=== PATIENT | male | born 1930 | race Caucasian/White ===

== ENCOUNTER 2016-07-18 02:33 | Inpatient (IN) | payer MEDICARE, OTHER ==
[~2016-07-18] VITALS: Ht 165.1 cm; Wt 56.5 kg
[2016-07-18] VITALS (10 sets, daily range): BP systolic 102–121; BP diastolic 57–82; PULSE 64–93; RESP 18–20; TEMP 97–98.1; O2SAT 95–100
[~2016-07-18 02:33] MED LIST: COLY4000S PO; Z.0.NO CURRENT MEDS
--- NOTE | 2016-07-18 04:18 | RADHPO ---
EXAM DATE/TIME: 07/18/2016 03:56 [place] COMPARISON: No previous studies available for comparison. INDICATIONS : Right knee pain after patient fell this morning MEDICAL HISTORY : None. SURGICAL HISTORY : None. ENCOUNTER: Initial ACUITY: 1 day PAIN SCORE: 10/10 LOCATION: Right entire knee FINDINGS: 4 views of the right knee. There is a horizontal fracture of the proximal tibia metaphysis with 4 mm lateral and posterior displacement of the distal fragment. Proximal fibular shaft fracture is also no emili with 3 mm lateral displacement of the distal fragment. Moderate-sized joint effusion. Chondrocalc inosis of the menisci. CONCLUSION: Proximal tibial metaphysis fracture and adjacent proximal fibular shaft fracture. Moderate-sized join t effusion. Bonifacio Shepard MD on July 18, 2016 at 4:14 Board Certified Radiologist. This report was verified electronically.
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
[2016-07-18] MEDS ORDERED: ONDANSETRON HCL 4 MG/2 ML VIAL IVP PRN ×2 (05:00→10:30)
[2016-07-18] MEDS ORDERED: MORPHINE SULFATE 4 MG/ML INJ IV PUSH PRN ×2 (05:00→10:30)
[2016-07-18] MEDS ORDERED: NALOXONE HCL 0.4 MG/ML AMP IV PRN ×2 (05:00→10:30)
[2016-07-18] MEDS ORDERED: SODIUM CHLORIDE 0.9% FLUSH 5 ML FLUSH FLUSH PRN ×2 (05:00→10:30)
[2016-07-18 05:44] LABS: AUTOMATED NEUTROPHIL # 12.2 TH/MM3 (1.8-7.7); BASOPHIL # 0.2 TH/MM3 (0-0.2); BASOPHIL % 1.2 % (0.0-2.0); EOSINOPHIL % 0.1 % (0.0-4.0); HEMATOCRIT 33.4 % (39.0-51.0); LYMPH % 3.1 % (9.0-44.0); LYMPHOCYTE # 0.4 TH/MM3 (1.0-4.8); MEAN CELL VOLUME 97.3 FL (80.0-100.0); MEAN CORPUSCULAR HEMOGLOBIN 32.8 PG (27.0-34.0); MEAN CORPUSCULAR HGB CONC 33.8 % (32.0-36.0); MONO % 6.7 % (0.0-8.0); NEUT % 88.9 % (16.0-70.0); PLATELET COUNT 103 TH/MM3 (150-450); RED BLOOD COUNT 3.43 MIL/MM3 (4.50-5.90); RED CELL DISTRIBUTION WIDTH 14.5 % (11.6-17.2); WHITE BLOOD COUNT 13.7 TH/MM3 (4.0-11.0)
[2016-07-18 05:52] LABS: POTASSIUM 4.3 MEQ/L (3.5-5.1)
[2016-07-18 05:55] LABS: BICARBONATE 24.7 MEQ/L (21.0-32.0)
[2016-07-18 05:58] LABS: APTT (PATIENT) 22.9 SEC (24.3-30.1); PROTHROMBIN TIME - PATIENT 11.5 SEC (9.8-11.6)
[2016-07-18 05:59] LABS: HEMO FLAGS DIFF FINAL
[2016-07-18] MEDS ORDERED: SODIUM CHLORIDE 0.9% FLUSH 5 ML FLUSH FLUSH SCH (09:00)
--- NOTE | 2016-07-18 10:27 | HHI.HP ---
[facility] Wang Hawkins M.D. Admission Diagnosis Displaced proximal tib/fib fracture Diagnoses: Chief Complaint: Fall Travel History International Travel<30 Days: No Contact w/Intl Traveler <30 Da: No Traveled to Known Affected Are: No History of Present Illness 85 years old male presented to the ED after he fell down on his knees while he was throwing trash, in general he is a poor historian but he stated his knees give out on him, the neighbor across the street came to help him out. Currently patient stated his pain is tolerable, he denied any chest pain short of breath headache lightheaded, pain diarrhea constipation, he denied any history of myocardial infarction or stroke in the past, he stated he had a right hip surgery in the past but he didn't know what it is. He denied any medical problem except for possible hypertension. In ED orthopedic was consulted and initially the plan for the patient was be transferred to the [facility] for orthopedic workup, however Dr. Cheney recommended against surgical intervention, after he reviewed the film patient is nonoperative, nonweightbearing. Review of Systems All 10 systems reviewed and was positive for what is mentioned in history of present illness otherwise negative Past Family Social History Past Medical History Patient denied any history of [place], and artery disease thyroid or any other medical problems except possible hypertension but he doesn't take medication only medication he takes is some laxity Past Surgical History H/O right hip surgery in the past Allergies: Coded Allergies: No Known Allergies (Verified , 07/18/16) Family History Reviewed noncontributory Social History Drinks alcohol occasionally, no tobacco or illicit drug abuse Physical Exam Vital Signs Vital Signs Date Time Temp Pulse Resp B/P Pulse Ox O2 Delivery O2 Flow Rate FiO2 07/18/16 08:00 97.7 68 18 117/71 100 07/18/16 06:43 78 18 100 Room Air 07/18/16 06:43 78 18 121/63 100 Room Air 07/18/16 04:47 97.6 90 18 118/68 100 Room Air 07/18/16 04:47 90 18 100 Room Air 07/18/16 03:48 85 18 113/78 100 Room Air 07/18/16 02:49 93 18 99 Room Air 07/18/16 02:37 97.0 93 18 113/82 99 Physical Exam GENERAL: This is a frail 85 years old elderly well-developed patient, in no apparent distress. SKIN: No rashes, warm and dry HEAD: Atraumatic. Normocephalic. EYES: Pupils equal round and reactive. Extraocular motions intact. No scleral icterus. ENT: Nose without bleeding, or drainage, Airway patent. NECK: Trachea midline. Supple CARDIOVASCULAR: Regular rate and rhythm without murmurs, gallops, or rubs. RESPIRATORY: Fair air entry bilaterally. No wheezes, rales, or rhonchi. GASTROINTESTINAL: Abdomen soft, non-tender, nondistended. Positive bowel sounds MUSCULOSKELETAL: Right lower extremity in cast NEUROLOGICAL: Awake and alert. Moves all extremity. Normal speech.no focal neurological deficit Laboratory Laboratory Tests Test 07/18/16 05:30 White Blood Count 13.7 Red Blood Count 3.43 Hemoglobin 11.3 Hematocrit 33.4 Mean Corpuscular Volume 97.3 Mean Corpuscular Hemoglobin 32.8 Mean Corpuscular Hemoglobin 33.8 Concent Red Cell Distribution Width 14.5 Platelet Count 103 Mean Platelet Volume 8.9 Neutrophils (%) (Auto) 88.9 Lymphocytes (%) (Auto) 3.1 Monocytes (%) (Auto) 6.7 Eosinophils (%) (Auto) 0.1 Basophils (%) (Auto) 1.2 Neutrophils # (Auto) 12.2 Lymphocytes # (Auto) 0.4 Monocytes # (Auto) 0.9 Eosinophils # (Auto) 0.0 Basophils # (Auto) 0.2 CBC Comment DIFF FINAL Differential Comment Prothrombin Time 11.5 Prothromb Time International 1.0 Ratio Activated Partial 22.9 Thromboplast Time Sodium Level 141 Potassium Level 4.3 Chloride Level 108 Carbon Dioxide Level 24.7 Anion Gap 8 Blood Urea Nitrogen 15 Creatinine 0.60 Estimat Glomerular Filtration 128 Rate Random Glucose 110 Calcium Level 7.9 Result Diagram: 07/18/16 0530 07/18/16 0530 Imaging Last Impressions Knee X-Ray 07/18/16 0000 Signed Impressions: Service Date/Time: July 03:56 - CONCLUSION: Proximal tibial metaphysis fracture and adjacent proximal fibular shaft fracture. Moderate-sized joint effusion. Bonifacio Shepard MD Assessment and Plan Assessment and Plan 85 years old male with Proximal tibial metaphysis fracture and adjacent proximal fibular shaft fracture Due to mechanical fall. Admitted to inpatient for pain management Consult orthopedic, no need to transferred to [facility], nonoperative, nonweightbearing Consult PT OT Consult correctional counselor/case manager for placement [place] and morphine for pain contro Monitor blood pressure, will check A1c, and monitor Accu-Chek Heparin for DVT prophylaxis Thrombocytopenia: Unknown origin, will monitor CBC closely while patient on DVT prophylaxis with heparin Discussed Condition With Patient, nurse an PA Physician Certification 2 Midnight Certification Type: Admission for Inpatient Services Order for Inpatient Services The services are ordered in accordance with Medicare regulations or non- Medicare payer requirements, as applicable. In the case of services not specified as inpatient-only, they are appropriately provided as inpatient services in accordance with the 2-midnight benchmark. Estimated LOS (days): 2 days is the estimated time the patient will need to remain in the hospital, assuming treatment plan goals are met and no additional complications. Post-Hospital Plan: Not yet determined Villa Maloney MD Jul 18, 2016 10:27
[2016-07-18] MEDS ORDERED: MAGNESIUM HYDROXIDE SUSP 30 ML CUP PO PRN (10:30)
[2016-07-18] MEDS ORDERED: ACETAMINOPHEN 325 MG TAB PO PRN (10:30)
[2016-07-18] MEDS ORDERED: ACETAMINOPHEN/HYDROcodone 325 MG/5 MG TAB PO PRN (10:30)
[2016-07-18] MEDS ORDERED: SENNOSIDES 8.6 MG TAB PO PRN (10:30)
[2016-07-18] MEDS ORDERED: BISACODYL 10 MG SUPP PR PRN (10:30)
[2016-07-18] MEDS: DOCUSATE SODIUM 100 MG CAP PO SCH ×2 (12:13→21:00)
[2016-07-18] MEDS: HEPARIN SODIUM - SQ 10,000 UNITS/ML VIAL SQ SCH ×2 (12:22→21:01)
--- NOTE | 2016-07-18 13:49 | EKG ---
Date Performed: 07/18/2016 Time Performed: 05:24:00 PTAGE: 85 years EKG: Sinus rhythm with 1st degree A-V block. Abnormal ECG NO PREVIOUS TRACING DOCTOR: Alden Copeland Interpretating Date/Time 07/18/2016 13:46:53
--- NOTE | 2016-07-18 19:16 | PD.ORT.PN ---
Subjective Subjective Remarks Patient presented after a fall. Has nondisplaced proximal tib-fib fracture. This was initially described as a displaced fracture. I reviewed the x-rays early this morning and saw this was a nondisplaced fracture. I recommended the patient be laced in a long leg splint, discharged to home and follow-up in approximately 1 week. The patient is now in the hospital for social reasons related to difficulty with ambulation from recent fracture. Objective Vitals Vital Signs Date Time Temp Pulse Resp B/P Pulse Ox O2 Delivery O2 Flow Rate FiO2 07/18/16 16:00 97.2 64 20 118/68 95 07/18/16 12:00 97.7 65 18 115/71 100 07/18/16 11:00 98 21 07/18/16 08:00 97.7 68 18 117/71 100 07/18/16 06:43 78 18 100 Room Air 07/18/16 06:43 78 18 121/63 100 Room Air 07/18/16 04:47 97.6 90 18 118/68 100 Room Air 07/18/16 04:47 90 18 100 Room Air 07/18/16 03:48 85 18 113/78 100 Room Air 07/18/16 02:49 93 18 99 Room Air 07/18/16 02:37 97.0 93 18 113/82 99 I/O 07/17/16 07/17/16 07/17/16 07/18/16 07/18/16 07/18/16 07:00 15:00 23:00 07:00 15:00 23:00 Intake Total 500 ml 320 ml Output Total 300 ml 135 ml Balance 500 ml 20 ml -135 ml Intake Oral 320 ml IV Total 500 ml Output Urine Total 300 ml 135 ml # Bowel Movements 0 Result Diagram: 07/18/16 0530 07/18/16 0530 Other Results Laboratory Tests Test 07/18/16 05:30 Prothrombin Time 11.5 SEC (9.8-11.6) Prothromb Time International 1.0 RATIO Ratio Imaging Last 24 hours Impressions Knee X-Ray 07/18/16 0000 Signed Impressions: Service Date/Time: July 03:56 - CONCLUSION: Proximal tibial metaphysis fracture and adjacent proximal fibular shaft fracture. Moderate-sized joint effusion. Bonifacio Shepard MD Objective Remarks Patient is in a long leg splint. He is admitted because of inability to ambulate and likely will need rehabilitation/SNF Assessment & Plan Assessment and Plan Fracture proximal tibia and fibula, minimally displaced PLAN: Nonweightbearing Continued long leg splint Follow-up in 1 week. Repeat x-ray at that time. The patient may need delayed open treatment internal fixation Likely will do well without surgical treatment Will try to discuss with attending tomorrow Jose Cheney MD Jul 18, 2016 19:16
[2016-07-18] MEDS ORDERED: HEPARIN SODIUM - SQ 10,000 UNITS/ML VIAL SQ SCH (20:30)
[2016-07-18] MEDS: SODIUM CHLORIDE 0.9% FLUSH 5 ML FLUSH FLUSH SCH (21:01)
[2016-07-18] MEDS: ACETAMINOPHEN/HYDROcodone 325 MG/7.5 MG TAB PO PRN (21:02)
[2016-07-19] VITALS: BP 108/70; PULSE 71; RESP 18; TEMP 97.8; O2SAT 97
[2016-07-19] MEDS: ACETAMINOPHEN/HYDROcodone 325 MG/7.5 MG TAB PO PRN ×2 (02:04→20:13)
[2016-07-19] MEDS: HEPARIN SODIUM - SQ 10,000 UNITS/ML VIAL SQ SCH ×3 (06:01→22:00)
[2016-07-19 06:18] LABS: AUTOMATED NEUTROPHIL # 5.9 TH/MM3 (1.8-7.7); BASOPHIL % 0.6 % (0.0-2.0); EOSINOPHIL # 0.1 TH/MM3 (0-0.4); LYMPH % 12.4 % (9.0-44.0); LYMPHOCYTE # 0.9 TH/MM3 (1.0-4.8); MEAN CELL VOLUME 98.8 FL (80.0-100.0); MEAN CORPUSCULAR HEMOGLOBIN 33.1 PG (27.0-34.0); MEAN CORPUSCULAR HGB CONC 33.5 % (32.0-36.0); MONO % 4.9 % (0.0-8.0); NEUT % 81.1 % (16.0-70.0); PLATELET COUNT 91 TH/MM3 (150-450); RED BLOOD COUNT 2.73 MIL/MM3 (4.50-5.90); RED CELL DISTRIBUTION WIDTH 14.4 % (11.6-17.2); WHITE BLOOD COUNT 7.3 TH/MM3 (4.0-11.0)
[2016-07-19 06:19] LABS: CHLORIDE 109 MEQ/L (98-107); POTASSIUM 4.1 MEQ/L (3.5-5.1); SODIUM (NA) 141 MEQ/L (136-145)
[2016-07-19 06:23] LABS: ANION GAP 7 MEQ/L (5-15); BICARBONATE 25.3 MEQ/L (21.0-32.0); BLOOD UREA NITROGEN 13 MG/DL (7-18)
[2016-07-19 06:26] LABS: ALT (GPT) 16 U/L (12-78); AST (GOT) 25 U/L (15-37); GLOMERULAR FILTRATION RATE 109 ML/MIN (>89)
[2016-07-19 06:27] LABS: TOTAL BILIRUBIN ADULT 1.1 MG/DL (0.2-1.0)
[2016-07-19 06:28] LABS: HEMO FLAGS AUTO DIFF
[2016-07-19 06:29] LABS: ALKALINE PHOSPHATASE 55 U/L (45-117)
[2016-07-19 07:17] LABS: PLATELET ESTIMATE SMEAR LOW (NORMAL); PLATELET MORPHOLOGY NORMAL (NORMAL); SCAN/DIFF AUTO DIFF CONFIRMED
[2016-07-19 08:04] VITALS: BP 131/67; PULSE 71; RESP 19; TEMP 98.3; O2SAT 96
[2016-07-19] MEDS: SODIUM CHLORIDE 0.9% FLUSH 5 ML FLUSH FLUSH SCH ×2 (10:14→20:12)
[2016-07-19] MEDS: DOCUSATE SODIUM 100 MG CAP PO SCH ×2 (10:14→22:04)
[2016-07-19 11:21] VITALS: O2SAT 97
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
[2016-07-19 12:04] VITALS: BP 114/61; PULSE 72; RESP 18; TEMP 96.2; O2SAT 96
[2016-07-19 16:05] VITALS: BP 120/79; PULSE 80; RESP 18; TEMP 98.3; O2SAT 99
--- NOTE | 2016-07-19 17:33 | HHI.PR ---
Objective Vitals Vital Signs Date Time Temp Pulse Resp B/P Pulse Ox O2 Delivery O2 Flow Rate FiO2 07/19/16 16:05 98.3 80 18 120/79 99 07/19/16 12:04 96.2 72 18 114/61 96 07/19/16 11:21 97 07/19/16 08:04 98.3 71 19 131/67 96 07/19/16 00:00 97.8 71 18 108/70 97 07/18/16 20:00 98.1 73 18 102/57 96 07/18/16 19:59 95 I/O 07/18/16 07/18/16 07/18/16 07/19/16 07/19/16 07/19/16 07:00 15:00 23:00 07:00 15:00 23:00 Intake Total 500 ml 670 ml 240 ml 240 ml Output Total 450 ml 335 ml 400 ml 250 ml Balance 500 ml 220 ml -95 ml -160 ml -250 ml Intake Oral 670 ml 240 ml 240 ml IV Total 500 ml Output Urine Total 450 ml 335 ml 400 ml 250 ml Stool Total 0 ml # Bowel Movements 0 0 Result Diagram: 07/19/16 0458 07/19/16 0548 Villa Maloney MD Jul 19, 2016 17:33
--- NOTE | 2016-07-19 17:50 | HHI.PR ---
Subjective Remarks Patient laying in bed, he looks tired and frail But he stated the pain is tolerable Platelet dropped from 103-91 today Objective Vitals Vital Signs Date Time Temp Pulse Resp B/P Pulse Ox O2 Delivery O2 Flow Rate FiO2 07/19/16 16:05 98.3 80 18 120/79 99 07/19/16 12:04 96.2 72 18 114/61 96 07/19/16 11:21 97 07/19/16 08:04 98.3 71 19 131/67 96 07/19/16 00:00 97.8 71 18 108/70 97 07/18/16 20:00 98.1 73 18 102/57 96 07/18/16 19:59 95 I/O 07/18/16 07/18/16 07/18/16 07/19/16 07/19/16 07/19/16 07:00 15:00 23:00 07:00 15:00 23:00 Intake Total 500 ml 670 ml 240 ml 240 ml Output Total 450 ml 335 ml 400 ml 250 ml Balance 500 ml 220 ml -95 ml -160 ml -250 ml Intake Oral 670 ml 240 ml 240 ml IV Total 500 ml Output Urine Total 450 ml 335 ml 400 ml 250 ml Stool Total 0 ml # Bowel Movements 0 0 Result Diagram: 07/19/16 0458 07/19/16 0548 Objective Remarks GENERAL: This is a frail 85 years old elderly well-developed patient, in no apparent distress. SKIN: No rashes, warm and dry HEAD: Atraumatic. Normocephalic. EYES: Pupils equal round and reactive. Extraocular motions intact. No scleral icterus. ENT: Nose without bleeding, or drainage, Airway patent. NECK: Trachea midline. Supple CARDIOVASCULAR: Regular rate and rhythm without murmurs, gallops, or rubs. RESPIRATORY: Fair air entry bilaterally. No wheezes, rales, or rhonchi. GASTROINTESTINAL: Abdomen soft, non-tender, nondistended. Positive bowel sounds MUSCULOSKELETAL: Right lower extremity in cast NEUROLOGICAL: Awake and alert. Moves all extremity. Normal speech.no focal neurological deficit A/P Assessment and Plan 85 years old male with Proximal tibial metaphysis fracture and adjacent proximal fibular shaft fracture Due to mechanical fall. Admitted to inpatient for pain management Consult orthopedic, no need to transferred to [facility], nonoperative, nonweightbearing Consult PT OT Consult director of casework department for placement [place] and morphine for pain contro Monitor blood pressure, will check A1c, and monitor Accu-Chek Heparin for DVT prophylaxis Thrombocytopenia: Platelet dropped from 103-91, Unknown origin, continue monitoring CBC closely while patient on DVT prophylaxis with heparin Villa Maloney MD Jul 19, 2016 17:50
[2016-07-19 20:05] VITALS: BP 136/79; PULSE 81; RESP 12; TEMP 98.2; O2SAT 93
[2016-07-19] MEDS: MORPHINE SULFATE 4 MG/ML INJ IV PUSH PRN (22:05)
[2016-07-20 00:23] VITALS: BP 133/80; PULSE 88; RESP 14; TEMP 98.4; O2SAT 94
[2016-07-20] MEDS: HEPARIN SODIUM - SQ 10,000 UNITS/ML VIAL SQ SCH ×3 (05:07→21:08)
[2016-07-20] MEDS: ACETAMINOPHEN/HYDROcodone 325 MG/7.5 MG TAB PO PRN (05:08)
[2016-07-20 05:46] VITALS: BP 129/77; PULSE 80; RESP 14; TEMP 98; O2SAT 95
[2016-07-20 07:21] LABS: AUTOMATED NEUTROPHIL # 5.1 TH/MM3 (1.8-7.7); BASOPHIL % 0.5 % (0.0-2.0); EOSINOPHIL # 0.1 TH/MM3 (0-0.4); EOSINOPHIL % 0.8 % (0.0-4.0); HEMATOCRIT 25.7 % (39.0-51.0); LYMPH % 10.9 % (9.0-44.0); LYMPHOCYTE # 0.7 TH/MM3 (1.0-4.8); MEAN CELL VOLUME 97.4 FL (80.0-100.0); MEAN CORPUSCULAR HGB CONC 33.9 % (32.0-36.0); MONO % 5.8 % (0.0-8.0); PLATELET COUNT 96 TH/MM3 (150-450); RED BLOOD COUNT 2.64 MIL/MM3 (4.50-5.90); RED CELL DISTRIBUTION WIDTH 14.4 % (11.6-17.2); WHITE BLOOD COUNT 6.3 TH/MM3 (4.0-11.0)
[2016-07-20 07:36] LABS: HEMO FLAGS AUTO DIFF
[2016-07-20 08:00] VITALS: BP 123/73; PULSE 77; RESP 17; TEMP 98.2; O2SAT 96
[2016-07-20 08:06] LABS: PLATELET ESTIMATE SMEAR LOW (NORMAL); PLATELET MORPHOLOGY NORMAL (NORMAL); SCAN/DIFF AUTO DIFF CONFIRMED
[2016-07-20] MEDS: DOCUSATE SODIUM 100 MG CAP PO SCH ×2 (08:48→21:08)
[2016-07-20] MEDS: SODIUM CHLORIDE 0.9% FLUSH 5 ML FLUSH FLUSH SCH ×2 (08:48→21:08)
[2016-07-20] MEDS ORDERED: HEPA10003 SQ (09:32)
[2016-07-20] MEDS ORDERED: HYDR-3516 PO (09:32)
[2016-07-20] MEDS ORDERED: ENOX40P SQ (09:33)
--- NOTE | 2016-07-20 09:39 | HHI.DS ---
Discharge Summary Admission Date Jul 18, 2016 at 05:14 Discharge Date: Jul 21, 2016 Admitting Diagnosis Displaced proximal tib/fib fracture (1) Tibia/fibula fracture ICD Code: S82.209A (2) Closed fracture of proximal end of right tibia and fibula ICD Code: S82.101A (3) Thrombocytopenia ICD Code: D69.6 Procedures None Brief History - From Admission 85 years old male presented to the ED after he fell down on his knees while he was throwing trash, in general he is a poor historian but he stated his knees give out on him, the neighbor across the street came to help him out. Currently patient stated his pain is tolerable, he denied any chest pain short of breath headache lightheaded, pain diarrhea constipation, he denied any history of myocardial infarction or stroke in the past, he stated he had a right hip surgery in the past but he didn't know what it is. He denied any medical problem except for possible hypertension. In ED orthopedic was consulted and initially the plan for the patient was be transferred to the main hospital for orthopedic workup, however Dr. Cheney recommended against surgical intervention, after he reviewed the film patient is nonoperative, nonweightbearing. CBC/BMP: 07/20/16 0559 07/19/16 0548 Significant Findings Laboratory Tests Test 07/18/16 07/19/16 07/19/16 07/20/16 05:30 04:58 05:48 05:59 White Blood Count 13.7 TH/MM3 (4.0-11.0) Red Blood Count 3.43 MIL/MM3 2.73 MIL/MM3 2.64 MIL/MM3 (4.50-5.90) (4.50-5.90) (4.50-5.90) Hemoglobin 11.3 GM/DL 9.1 GM/DL 8.7 GM/DL (13.0-17.0) (13.0-17.0) (13.0-17.0) Hematocrit 33.4 % 27.0 % 25.7 % (39.0-51.0) (39.0-51.0) (39.0-51.0) Platelet Count 103 TH/MM3 91 TH/MM3 96 TH/MM3 (150-450) (150-450) (150-450) Neutrophils (%) (Auto) 88.9 % 81.1 % 82.0 % (16.0-70.0) (16.0-70.0) (16.0-70.0) Lymphocytes (%) (Auto) 3.1 % (9.0-44.0) Neutrophils # (Auto) 12.2 TH/MM3 (1.8-7.7) Lymphocytes # (Auto) 0.4 TH/MM3 0.9 TH/MM3 0.7 TH/MM3 (1.0-4.8) (1.0-4.8) (1.0-4.8) Activated Partial 22.9 SEC Thromboplast Time (24.3-30.1) Chloride Level 108 MEQ/L 109 MEQ/L (98-107) (98-107) Random Glucose 110 MG/DL (74-106) Calcium Level 7.9 MG/DL 7.7 MG/DL (8.5-10.1) (8.5-10.1) Platelet Estimate LOW (NORMAL) LOW (NORMAL) Total Bilirubin 1.1 MG/DL (0.2-1.0) Total Protein 5.4 GM/DL (6.4-8.2) Albumin 2.8 GM/DL (3.4-5.0) PE at Discharge GENERAL: This is a frail 85 years old elderly well-developed patient, in no apparent distress. SKIN: No rashes, warm and dry HEAD: Atraumatic. Normocephalic. EYES: Pupils equal round and reactive. Extraocular motions intact. No scleral icterus. ENT: Nose without bleeding, or drainage, Airway patent. NECK: Trachea midline. Supple CARDIOVASCULAR: Regular rate and rhythm without murmurs, gallops, or rubs. RESPIRATORY: Fair air entry bilaterally. No wheezes, rales, or rhonchi. GASTROINTESTINAL: Abdomen soft, non-tender, nondistended. Positive bowel sounds MUSCULOSKELETAL: Right lower extremity in cast NEUROLOGICAL: Awake and alert. Moves all extremity. Normal speech.no focal neurological deficit Hospital Course 85 years old male with Proximal tibial metaphysis fracture and adjacent proximal fibular shaft fracture Due to mechanical fall. Admitted to inpatient for pain management Consult orthopedic, no need to transferred to [facility], nonoperative, nonweightbearing Consult PT OT,Consult case management rn for placement,[place] and morphine for pain contro ,Monitor blood pressure, will check A1c, and monitor Accu-Chek,Heparin for DVT prophylaxis Patient had Thrombocytopenia: Platelet dropped from 103-91 but went up back to 96, Unknown origin, ordered CBC to be checked at the rehabilitation, continue with Lovenox, consider stopping once mobilization improved Pt Condition on Discharge: Fair Discharge Disposition: Discharge to SNF Discharge Time: <= 30 minutes Discharge Instructions DIET: Follow Instructions for: Heart Healthy Diet Activities you can perform: Non Weight Bearing Activities to Avoid: Lifting/Bending Follow up Referrals: Orthopedics - 1 Week @ [facility] [place] with Jose Cheney MD New Orders: CBC NO DIFF - 2-3 Days New Medications: Enoxaparin Inj (Lovenox Inj) 40 Mg/0.4 Ml Syr 40 MG SQ DAILY Blood Clot Prevention #28 Ref 0 SYRINGE Hydrocodone-Acetaminophen (Hydrocodone-Acetaminophen) 5-325 mg Tab 1 TAB PO Q4H PRN PAIN SCALE 3 TO 5 #25 TAB Villa Maloney MD Jul 20, 2016 09:39
[2016-07-20 12:00] VITALS: BP 109/56; PULSE 58; RESP 18; TEMP 98.2; O2SAT 94
--- NOTE | 2016-07-20 12:07 | HHI.PR ---
Subjective Remarks Patient laying in bed awake alert, stated his hip the still there but tolerable , he complained of feeling bloated his platelet today increased again to 96 manager respiratory care Working on placement Objective Vitals Vital Signs Date Time Temp Pulse Resp B/P Pulse Ox O2 Delivery O2 Flow Rate FiO2 07/20/16 08:00 98.2 77 17 123/73 96 07/20/16 06:08 18 07/20/16 05:46 98.0 80 14 129/77 95 07/20/16 00:23 98.4 88 14 133/80 94 07/19/16 22:10 18 07/19/16 20:05 98.2 81 12 136/79 93 07/19/16 16:05 98.3 80 18 120/79 99 I/O 07/19/16 07/19/16 07/19/16 07/20/16 07/20/16 07/20/16 07:00 15:00 23:00 07:00 15:00 23:00 Intake Total 240 ml 120 ml 2 ml Output Total 400 ml 250 ml 150 ml Balance -160 ml -250 ml -30 ml 2 ml Intake Oral 240 ml 120 ml IV Total 2 ml Output Urine Total 400 ml 250 ml 150 ml # Bowel Movements 0 Result Diagram: 07/20/16 0559 07/19/16 0548 Objective Remarks GENERAL: This is a frail 85 years old elderly well-developed patient, in no apparent distress. SKIN: No rashes, warm and dry HEAD: Atraumatic. Normocephalic. EYES: Pupils equal round and reactive. Extraocular motions intact. No scleral icterus. ENT: Nose without bleeding, or drainage, Airway patent. NECK: Trachea midline. Supple CARDIOVASCULAR: Regular rate and rhythm without murmurs, gallops, or rubs. RESPIRATORY: Fair air entry bilaterally. No wheezes, rales, or rhonchi. GASTROINTESTINAL: Abdomen soft, non-tender, nondistended. Positive bowel sounds MUSCULOSKELETAL: Right lower extremity in cast NEUROLOGICAL: Awake and alert. Moves all extremity. Normal speech.no focal neurological deficit Procedures None A/P Problem List: (1) Tibia/fibula fracture ICD Code: S82.209A Status: Acute (2) Closed fracture of proximal end of right tibia and fibula ICD Code: S82.101A Status: Acute (3) Thrombocytopenia ICD Code: D69.6 Status: Acute Assessment and Plan 85 years old male with Proximal tibial metaphysis fracture and adjacent proximal fibular shaft fracture Due to mechanical fall. Admitted to inpatient for pain management Consult orthopedic, no need to transferred to [facility], nonoperative, nonweightbearing Consult PT OT Consult caser up for placement [place] and morphine for pain contro Monitor blood pressure, A1c pending, and Accu-Chek has been within normal limits Heparin for DVT prophylaxis with monitoring of platelet Thrombocytopenia: Platelet dropped from 103-91 then increased to 96 today, Unknown origin, continue monitoring CBC closely while patient on DVT prophylaxis with heparin Bloating: We'll give Simethicone Discharge Planning In a.m. to SNF patient need 3 days to qualify for SNF, he lives alone very debilitated Problem Qualifiers (1) Tibia/fibula fracture: Qualified Code: S82.201A - Tibia/fibula fracture, right, closed, initial encounter Villa Maloney MD Jul 20, 2016 12:07
[2016-07-20 16:00] VITALS: BP 139/72; PULSE 72; RESP 16; TEMP 98; O2SAT 99
[2016-07-20] MEDS ORDERED: SIMETHICONE SUSP DROPS 40 MG/0.6 ML 30 ML BTL PO PRN (17:30)
[2016-07-20 20:42] VITALS: BP 143/73; PULSE 66; RESP 14; TEMP 98.1; O2SAT 96
[2016-07-20] MEDS: MORPHINE SULFATE 4 MG/ML INJ IV PUSH PRN (21:09)
[2016-07-21 00:23] VITALS: BP 130/80; PULSE 60; RESP 14; TEMP 98; O2SAT 93
[2016-07-21] MEDS: HEPARIN SODIUM - SQ 10,000 UNITS/ML VIAL SQ SCH ×2 (06:30→15:22)
[2016-07-21 08:00] VITALS: BP 108/72; PULSE 74; RESP 18; TEMP 98.8; O2SAT 96
[2016-07-21] MEDS: DOCUSATE SODIUM 100 MG CAP PO SCH (08:26)
[2016-07-21] MEDS: SODIUM CHLORIDE 0.9% FLUSH 5 ML FLUSH FLUSH SCH (08:26)
--- NOTE | 2016-07-21 09:07 | RADHPO ---
EXAM DATE/TIME: 07/21/2016 08:52 [place] COMPARISON: No previous studies available for comparison. INDICATIONS : Abdomen pain MEDICAL HISTORY : none given SURGICAL HISTORY : None given ENCOUNTER: Initial ACUITY: 2 days PAIN SCORE: 8/10 LOCATION: Bilateral abdomen FINDINGS: Supine view of the abdomen was performed. Gaseous distention of multiple bowel loops. The abdominal b owel gas pattern is normal. No abnormal masses, calcifications, or organomegaly is seen. The osseou s structures are unremarkable. Screws are seen in the right hip. Extensive arthritis of both hips. CONCLUSION: 1. Gaseous distention of multiple bowel loops. Jasbir Esparza MD on July 21, 2016 at 9:03 Board Certified Radiologist. This report was verified electronically.
[2016-07-21 09:57] LABS: HEMOGLOBIN A1a 1.3 %; HEMOGLOBIN A1b 1.3 %; HEMOGLOBIN Ao 87.6 %; HEMOGLOBIN LA1C 1.3 %; HEMOGLOBIN P3 3.1 %
[2016-07-21 12:00] VITALS: BP 107/65; PULSE 83; RESP 18; TEMP 96.8; O2SAT 95
--- NOTE | 2016-07-21 12:57 | HHI.PR ---
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, work in a repairing the Patient complained of feeling bloated again, he had an x-ray of his abdomen yesterday which shows gaseous pattern He is on same medication, he told me he has that problem for a long time, no nausea or vomiting, he did have a bowel movement We are awaiting placement in a rehabilitation for him Objective Vitals Vital Signs Date Time Temp Pulse Resp B/P Pulse Ox O2 Delivery O2 Flow Rate FiO2 07/21/16 12:00 96.8 83 18 107/65 95 07/21/16 08:00 98.8 74 18 108/72 96 07/21/16 00:23 98.0 60 14 130/80 93 07/20/16 21:14 18 07/20/16 20:42 98.1 66 14 143/73 96 07/20/16 16:00 98.0 72 16 139/72 99 I/O 07/20/16 07/20/16 07/20/16 07/21/16 07/21/16 07/21/16 07:00 15:00 23:00 07:00 15:00 23:00 Intake Total 4 ml Output Total 400 ml Balance 4 ml -400 ml IV Total 4 ml Output Urine Total 400 ml Result Diagram: 07/20/16 0559 07/19/16 0548 Objective Remarks GENERAL: This is a frail 85 years old elderly well-developed patient, in no apparent distress. SKIN: No rashes, warm and dry HEAD: Atraumatic. Normocephalic. EYES: Pupils equal round and reactive. Extraocular motions intact. No scleral icterus. ENT: Nose without bleeding, or drainage, Airway patent. NECK: Trachea midline. Supple CARDIOVASCULAR: Regular rate and rhythm without murmurs, gallops, or rubs. RESPIRATORY: Fair air entry bilaterally. No wheezes, rales, or rhonchi. GASTROINTESTINAL: Abdomen soft, non-tender, nondistended. Slightly tympanic to percussion, Positive bowel sounds MUSCULOSKELETAL: Right lower extremity in cast NEUROLOGICAL: Awake and alert. Moves all extremity. Normal speech.no focal neurological deficit Procedures None A/P Problem List: (1) Tibia/fibula fracture ICD Code: S82.209A Status: Acute (2) Closed fracture of proximal end of right tibia and fibula ICD Code: S82.101A Status: Acute (3) Thrombocytopenia ICD Code: D69.6 Status: Acute Assessment and Plan 85 years old male with Proximal tibial metaphysis fracture and adjacent proximal fibular shaft fracture Due to mechanical fall. Admitted to inpatient for pain management Consult orthopedic, no need to transferred to [facility], nonoperative, nonweightbearing Consult PT OT Consult nurse outreach case manager for placement [place] and morphine for pain contro Monitor blood pressure, A1c pending, and Accu-Chek has been within normal limits Heparin for DVT prophylaxis with monitoring of platelet Thrombocytopenia: Platelet dropped from 103-91 then increased to 96 today, Unknown origin, continue monitoring CBC closely while patient on DVT prophylaxis with heparin Bloating: Simethicone, abdominal x-ray showed gaseous bowels, he had a bowel movement today if no improvement will try Reglan but will avoid that now due to its side effect Discharge Planning Can be transferred to SNF once arrangement is done by nurse outreach case manager, discharge order placed Problem Qualifiers (1) Tibia/fibula fracture: Qualified Code: S82.201A - Tibia/fibula fracture, right, closed, initial encounter Villa Maloney MD Jul 21, 2016 12:57
== END 2016-07-21 16:28 | DRG 563 ==
LOC: PHED 02:33 → PHEDA 05:14 → PH3A 08:20
PROVIDERS: ADMIT Hospitalist; ATTEND Hospitalist
DX: S82.191A Other fracture of upper end of right tibia, initial encounter for closed fracture (principal); D69.6 Thrombocytopenia, unspecified; S82.491A Other fracture of shaft of right fibula, initial encounter for closed fracture; W18.39XA Other fall on same level, initial encounter; Y92.009 Unspecified place in unspecified non-institutional (private) residence as the place of occurrence of the external cause; I10 Essential (primary) hypertension; R14.0 Abdominal distension (gaseous); H91.90 Unspecified hearing loss, unspecified ear
CPT/HCPCS: 29505; 73564; 74000; 80048; 80053; 82948; 83036; 85025; 85610; 85730; 93005; J1644; J2270; J2405